=== PATIENT | male | born 1955 | race Caucasian/White ===

== ENCOUNTER → 2019-05-06 | Outpatient (CLI) | payer OTHER ==
[~2019-05-06] VITALS: Ht 185.4 cm; Wt 117.9 kg
[~2019-05-06] MED LIST: CARBAMAZEPINE200 M2 PO; DOXEPIN 10 MG C10 M1 PO; FLEXERIL PO; HYDROCORTISONE3011; HYDROXYZINE HCL25 M2 PO; PERCOCET 10-321 EACH PO; TOPICORT 0.25%15 GM TOP
--- NOTE | ~2019-05-06 | HPC ---
[facility] [address] [place] [address] PAIN MANAGEMENT CONSULTATION Name: EDOUARD LEE Room #: REG [facility] Pastor.#: [id number] Admission: 05/06/19 Attend Phys: Randy Joya MD Discharge: Date of : 53 Report #: [id number] THIS REPORT FOR: //name// CC: Nguyễn Cooley MD [facility] physician/PCP Randy Joya DATE OF SERVICE: 05/06/2019 CHIEF COMPLAINT: Trigeminal neuralgia. SUBJECTIVE: The patient is in the pain clinic today for a 40-minute consultation visit regarding his trigeminal neuralgia. He has had facial pain dating back nearly 20 years. He has been currently managed with Tegretol 200 mg 3 tablets twice a day for a total of 1200 mg. This has helped some, but his pain score still on an average daily basis is 7-8/10. He describes pain in all 3 branches of the trigeminal nerve temporomandibular and maxillary. It is affected by light, wind, and he has some allodynia. He describes it as though he has been struck by a baseball bat, a deep aching sensation. He denies any antecedent trauma, no dental procedures. It is not affected by chewing. He has had no procedural treatments. No radiofrequency. No balloon compression or injections. He has not sought out neurosurgical consultation for microvascular decompression. MEDICATIONS: Carbamazepine 6 per day, oxycodone 10/325 #90 per month p.r.n. lowest effective dose, doxepin 10 mg 4 at bedtime, hydroxyzine 25 mg t.i.d., cyclobenzaprine 10 mg t.i.d. as needed. ALLERGIES: SULFA. PAST MEDICAL HISTORY: Asthma, hypertension, history of unusual shortness of breath episode in 1996, which he describes as a stroke. I am not so certain. It might have been heat stroke, but there are no reports of focal neurologic deficits. He has no changes in speech pattern. SOCIAL HISTORY: He retired 6-7 years ago. He denies use of tobacco and enjoys alcohol 5 or 6 per week, usually a beer. He is . His is with him and supportive. FAMILY HISTORY: Positive strongly for cardiac issues with arrhythmia and his brother who at age 62. Most of this is on his mother's side. [address] [address] PAIN MANAGEMENT CONSULTATION Name: EDOUARD LEE [facility] [id number] Admission: 05/06/19 Attend Phys: Randy Joya MD Discharge: Date of : 53 Report #: [id number] REVIEW OF SYSTEMS: Positive for headaches, ringing of the ears, chronic sinus problems, shortness of breath, dyspnea on exertion, occasional chest pains, palpitations, nocturia, memory loss and insomnia. PHYSICAL EXAMINATION: GENERAL: He is a pleasant, anxious gentleman. VITAL SIGNS: Blood pressure 199/79, heart rate 77, respirations 18. Pain intensity 5/10. He is 6 feet 1 inch, 260 pounds. BMI is 34.3. HEENT: Reveals pupils to be equal, round, reactive to light. EOMs are intact. Examination of the face reveals no asymmetry. There is some redness in the mandaen which is a little unusual. He has some mild allodynia in the temporomandibular and maxillary branch, but this is not significant and does not trigger a spell or spasm. Oral cavity is normal with some dental rehabilitation. Mucous membranes are moist. NECK: Supple. CHEST: Clear. CARDIAC: Rhythm regular. MUSCULOSKELETAL: Good range of motion in all joints. No focal weakness is noted in any joints or any muscle groups throughout. Sensation is normal throughout the upper and lower extremities. Tenderness is mild across the low back. NEUROLOGIC: Cranial nerves II through XII are within normal limits. There are no deficits noted. Deep tendon reflexes in the upper and lower extremities are 2+. IMPRESSION: Trigeminal neuralgia/atypical facial pain. RECOMMENDATIONS: 1. Continue Tegretol. 2. Lowest effective dose of oxycodone. I do not see that this is problematic at this time, although I discussed with him is that he would use the CDC guideline. He should take his medications carefully from one physician safeguarding his medications, use a lowest effective dose. All medicines to be filled at one pharmacy. He understands that he has some dependency on opioids having used them for so long and that he would go through withdrawal if he stop them abruptly. I will continue them. May consider nonsteroidal anti-inflammatory drugs, although he has a history of gastric problems. Meloxicam is a bit more selective KAT-2 inhibiting than KAT-1. I have given him an initial trial at a low dose 7.5 mg once or twice a day and only 30 tablets. He understands clearly that he should watch carefully for any potential GI side effects from his medications that we will give it a try. [facility] [address] [facility] [place] [address] PAIN MANAGEMENT CONSULTATION Name: EDOUARD LEE Room #: REG ELISEO Atkinson#: [id number] Admission: 05/06/19 Attend Phys: Randy Joya MD Discharge: Date of : 53 Report #: [id number] Followup visit planned and further discussion on medication management in 1 month. By: [id number] Randy Joya MD /nt
[2019-05-06 09:01] VITALS: BP 199/89
--- NOTE | 2019-05-06 09:34 | NUR ---
Pain Clinic Assessment: 1. History of Osteoarthritis: NECK KNEE History of Rheumatoid Arthritis: N0 2. Height: 6 ft. 1 in. 185.4 cm. Weight: 260.0 lb. oz. 117.936 kg. Patient's BMI: 34.3 3. Vital Signs: BP: 199/89 Pulse: 77 Resp: 18 Temp: 02 Sat: 98 ECG Mon: 4. Pain Intensity: 5-10 5. Fall Risk: Dizziness: N Needs help standing or walking: Y Fallen in the last 3 months: Y Fall risk comments: 6. Patient on Blood Thinner: None 7. History of Hypertension: Y 8. Opioid Therapy greater than 6 weeks: Y Opiate Contract Signed: 9. Risk Assessment Tool Provided: DR BURCIAGA 10. Functional Assessment Tool: 11. Recreational Drug Use: Never Drug Type: Tobacco Use: Former Smoker Tobacco Type: Amount or Packs/day: How Many Years: Alcohol Use: Yes Frequency: Weekly Quant: 5-6 BEERS
== END ==
LOC: PAIN 08:10
DX: G50.0 Trigeminal neuralgia (principal); Z88.2 Allergy status to sulfonamides

== ENCOUNTER → 2020-07-06 | Outpatient (CLI) | payer OTHER | LOC: HYPER 09:36 | PROVIDERS: ATTEND Emergency Medicine | DX: T25.231A Burn of second degree of right toe(s) (nail), initial encounter (principal); T25.221A Burn of second degree of right foot, initial encounter; T31.0 Burns involving less than 10% of body surface; R21 Rash and other nonspecific skin eruption; R60.0 Localized edema; H91.90 Unspecified hearing loss, unspecified ear; E66.01 Morbid (severe) obesity due to excess calories; Z87.891 Personal history of nicotine dependence; Z68.34 Body mass index [BMI] 34.0-34.9, adult; X08.8XXA Exposure to other specified smoke, fire and flames, initial encounter; Y93.89 Activity, other specified; Y92.89 Other specified places as the place of occurrence of the external cause; Y99.8 Other external cause status ==

== ENCOUNTER → 2020-07-13 | Outpatient (CLI) | payer OTHER | LOC: HYPER 09:39 | PROVIDERS: ATTEND Emergency Medicine Emergency Medical Services | DX: L97.512 Non-pressure chronic ulcer of other part of right foot with fat layer exposed (principal); T25.221D Burn of second degree of right foot, subsequent encounter; T25.231D Burn of second degree of right toe(s) (nail), subsequent encounter; T31.0 Burns involving less than 10% of body surface; R21 Rash and other nonspecific skin eruption; R60.0 Localized edema; E66.01 Morbid (severe) obesity due to excess calories; H91.90 Unspecified hearing loss, unspecified ear; Z87.891 Personal history of nicotine dependence; Z68.34 Body mass index [BMI] 34.0-34.9, adult; X08.8XXD Exposure to other specified smoke, fire and flames, subsequent encounter ==

== ENCOUNTER → 2020-07-27 | Outpatient (CLI) | payer OTHER | LOC: HYPER 09:02 | PROVIDERS: ATTEND Emergency Medicine Emergency Medical Services | DX: T25.231D Burn of second degree of right toe(s) (nail), subsequent encounter (principal); T25.221D Burn of second degree of right foot, subsequent encounter; T31.0 Burns involving less than 10% of body surface; L97.512 Non-pressure chronic ulcer of other part of right foot with fat layer exposed; R21 Rash and other nonspecific skin eruption; R60.0 Localized edema; E66.01 Morbid (severe) obesity due to excess calories; H91.90 Unspecified hearing loss, unspecified ear; Z87.891 Personal history of nicotine dependence; Z68.34 Body mass index [BMI] 34.0-34.9, adult; X08.8XXD Exposure to other specified smoke, fire and flames, subsequent encounter ==